=== PATIENT | male | born 1970 | race Native Hawaiian/Other Pacific Islander ===

== ENCOUNTER 2022-01-12 16:32 | Inpatient (IN) | payer MEDICAID ==
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
[2022-01-13] MEDS: BENZTROPINE 1 MG TAB PO SCH ×2 (14:41→21:45)
[2022-01-13] MEDS: ARIPiprazole 5 MG TAB PO SCH (14:45)
[2022-01-13] MEDS: cloNIDine 0.1 MG TAB PO SCH (21:45)
[2022-01-13] MEDS: rOPINIRole 1 MG TAB PO SCH (21:45)
[2022-01-13] MEDS: cloNIDine 0.2 MG TAB PO SCH (21:46)
[2022-01-13] MEDS ORDERED: ROPINIROLE HCL 4 MG PO SCH (22:00)
--- NOTE | 2022-01-14 06:49 | Progress Note ---
Assessment and Plan Assessment and plan: Patient is a 51 year old male with past medical hx of biolar disorder admitted with homicidal ideation. He reports that he has a hx of Elevated BP Due to not taken care of himself but normally does not need BP meds although he takes them as part of his bipolar treatment. He reports recent Methamphetamine use relapase after being clean for nearly a year. He denies any chest pain, nausea, vomiting, neurosensory or motor deficit. He does have a racing thoughts while speaking otherwise no other complaints. HTN TOBACCO Substance abuse- methamphetamine BIPOLAR Disorder Bradycardic asymptomatic plan Continue to monitor heart rate if symptomatic notify continue supportive care per psych team Continue home medications Nicotine patch if he wants, for now he had said no Counselling on substance abuse discussed for about 15 mins. He verbalized understandign and states on discharge will get back to his detox program DVT/GI prophy Thank you for the consult History Interval history: Patient seen and examined no acute issues reported overnight. Hospitalist Physical - Physical exam Narrative exam: VITAL SIGNS: Reviewed. GENERAL: The patient appears normally developed, Vital signs as documented. HEAD: No signs of head trauma. EYES: Pupils are equal. Extraocular motions intact. EARS: Hearing grossly intact. MOUTH: Oropharynx is normal. NECK: No adenopathy, no JVD. CHEST: Chest with clear breath sounds bilaterally. No wheezes, rales, or rhonchi. CARDIAC: Bradycardic otherwise regular rhythm. S1 and S2, without murmurs, gallops, or rubs. VASCULAR: No Edema. Peripheral pulses normal and equal in all extremities. ABDOMEN: Soft, non tender and non distended. No rebound or guarding, and no masses palpated. Bowel Sounds normal. MUSCULOSKELETAL: Good range of motion of all major joints. Extremities without clubbing, cyanosis or edema. NEUROLOGIC EXAM: Alert and oriented x 3 No focal sensory or strength deficits. Speech normal. Follows commands. PSYCHIATRIC: Mood normal. SKIN: Well-healed surgical scars of the wrist detail exam as documented in skin assessment - Constitutional Vitals: Temp Pulse Resp BP Pulse Ox 98.9 F 54 L 18 132/80 97 01/13/22 20:00 01/13/22 21:46 01/13/22 20:00 01/13/22 21:46 01/13/22 20:00 General appearance: Present: no acute distress, well-nourished. Absent: mild distress, severe distress Results - Labs Labs: Laboratory Last Values POC Glucose 94 mg/dL (70-105) 01/13/22 06:47 Soler/IV: Voiding Method Toilet Active Medications - Current Medications Current Medications: Generic Name Dose Route Start Last Admin Trade Name Freq PRN Reason Stop Dose Admin Aripiprazole 5 mg 01/13/22 14:00 01/13/22 14:45 Aripiprazole 5 Mg Tab PO Not Given QDAY MAGGIE Benztropine Mesylate 1 mg 01/13/22 14:00 01/13/22 21:45 Benztropine 1 Mg Tab PO 1 mg BID MAGGIE Administration Clonidine HCl 0.1 mg 01/13/22 22:00 01/13/22 21:45 Clonidine 0.1 Mg Tab PO 0.1 mg QHS MAGGIE Administration Clonidine HCl 0.2 mg 01/13/22 22:00 01/13/22 21:46 Clonidine 0.2 Mg Tab PO 0.2 mg QHS MAGGIE Administration Ropinirole HCl 4 mg 01/13/22 22:00 01/13/22 21:45 Ropinirole 1 Mg Tab PO 4 mg QHS MAGGIE Administration
[2022-01-14] MEDS: ARIPiprazole 5 MG TAB PO SCH (10:34)
[2022-01-14] MEDS: BENZTROPINE 1 MG TAB PO SCH ×2 (10:36→23:04)
--- NOTE | 2022-01-14 10:38 | Progress Note ---
Subjective Date of service: 01/14/22 Principal diagnosis: Bipolar Disorder Subjective Comment: The patient was seen today. He is lying in bed. He is irritable and says he needs to get to [facility] in [place]. The patient denies SI/HI. He says "I was homicidal but I'm not now." He denies hallucinations. REVIEW OF SYSTEMS Constitutional: Negative for weight loss ENT: Negative for stridor Respiratory: Negative for cough or hemoptysis All other systems reviewed and are negative MENTAL STATUS EXAMINATION General Appearance: Dressed appropriately Behavior: calm and cooperative, irritable Mood: upset Affect and affective range: congruent with mood Thought Process: Goal directed Thought content: None Speech: Normal tone and pace Suicidal Ideation: Denies Homicidal Ideation: Denies Hallucinations: Denies Delusions: None elicited Insight and Judgment: Limited insight and judgment Memory: Limited Attention: Distracted Orientation: Alert, oriented Assessment Bipolar Disorder Treatment Plan Patient admitted for inpatient psychiatric evaluation, medication adjustment and close monitoring The patient's behavior, mood, sleep and appetite will be closely monitored. Patient enrolled in individual and group therapeutic sessions and encouraged to attend. Patient provided with a safe and structured environment. Patient's physical health needs will be addressed by the Hospitalist. Hospitalist Consulted Labs including CBC, CMP, Lipid profile and Hemoglobin A1C levels ordered for baseline reference Social Assessment will be completed and the Underground Mine Machinery Mechanic will work with patient and family to ensure a suitable and safe disposition Medication adjustment will be made as clinically indicated Abilify 5mg po daily yesterday No changes made today Usual Wellness [facility]: - Start Trazodone 50 mg po QHS & 50 mg po QHS PRN between 10 PM & 2 AM for insomnia - Start Melatonin 5 mg po QHS to promote circadian rhythm The patient agreed on the treatment plan, understood the risk, benefit, alternative treatment, potential consequence of no treatment, and gave informed consent. Estimated days: 6 Post hospital care: primary care provider, psychiatric provider Case staffed with Dr. Grace Medications and Allergies Allergies Allergy/AdvReac Type Severity Reaction Status Date / Time No Known Allergies Allergy Verified 01/13/22 04:36 Home Medications Medication Instructions Recorded Confirmed Last Taken Type Benztropine [Cogentin] 1 mg PO BID 01/13/22 01/13/22 Unknown History Ropinirole HCl [Requip] 4 mg PO QHS 01/13/22 01/13/22 Unknown History cloNIDine [Catapres] 0.1 mg PO QHS 01/13/22 01/13/22 Unknown History cloNIDine [Catapres] 0.2 mg PO QHS 01/13/22 01/13/22 Unknown History Active Meds: Active Medications Aripiprazole (Aripiprazole 5 Mg Tab) 5 mg PO QDAY [facility] Last Admin: 01/14/22 10:34 Dose: Not Given Benztropine Mesylate (Benztropine 1 Mg Tab) 1 mg PO BID [facility] Last Admin: 01/14/22 10:36 Dose: Not Given Clonidine HCl (Clonidine 0.1 Mg Tab) 0.1 mg PO QHS [facility] Last Admin: 01/13/22 21:45 Dose: 0.1 mg Clonidine HCl (Clonidine 0.2 Mg Tab) 0.2 mg PO QHS [facility] Last Admin: 01/13/22 21:46 Dose: 0.2 mg Ropinirole HCl (Ropinirole 1 Mg Tab) 4 mg PO QHS [facility] Last Admin: 01/13/22 21:45 Dose: 4 mg Results - Results Labs/Vitals: Laboratory Last Values POC Glucose 94 mg/dL (70-105) 01/13/22 06:47 Last Vital Signs Temp 98.9 F 01/13/22 20:00 Pulse 54 L 01/13/22 21:46 Resp 18 01/13/22 20:00 BP 132/80 01/13/22 21:46 Pulse Ox 97 01/13/22 20:00
[2022-01-14] MEDS: rOPINIRole 1 MG TAB PO SCH (21:37)
[2022-01-14] MEDS: cloNIDine 0.2 MG TAB PO SCH (21:38)
[2022-01-14] MEDS: cloNIDine 0.1 MG TAB PO SCH (21:39)
--- NOTE | 2022-01-15 07:14 | Progress Note ---
Assessment and Plan Assessment and plan: Patient is a 51 year old male with past medical hx of biolar disorder admitted with homicidal ideation. He reports that he has a hx of Elevated BP Due to not taken care of himself but normally does not need BP meds although he takes them as part of his bipolar treatment. He reports recent Methamphetamine use relapase after being clean for nearly a year. He denies any chest pain, nausea, vomiting, neurosensory or motor deficit. He does have a racing thoughts while speaking otherwise no other complaints. HTN TOBACCO Substance abuse- methamphetamine BIPOLAR Disorder Bradycardic asymptomatic plan Continue to supportive care and monitor heart rate if symptomatic notify MD continue supportive care per psych team Continue home medications Nicotine patch if he wants, for now he had said no Counselling on substance abuse discussed for about 15 mins. He verbalized understandign and states on discharge will get back to his detox program DVT/GI prophy Thank you for the consult History Interval history: Patient seen and examined no acute issues reported overnight. Laying in bed. Hospitalist Physical - Physical exam Narrative exam: VITAL SIGNS: Reviewed. GENERAL: The patient appears normally developed, Vital signs as documented. HEAD: No signs of head trauma. EYES: Pupils are equal. Extraocular motions intact. EARS: Hearing grossly intact. MOUTH: Oropharynx is normal. NECK: No adenopathy, no JVD. CHEST: Chest with clear breath sounds bilaterally. No wheezes, rales, or rhonchi. CARDIAC: Bradycardic otherwise regular rhythm. S1 and S2, without murmurs, ga llops, or rubs. VASCULAR: No Edema. Peripheral pulses normal and equal in all extremities. ABDOMEN: Soft, non tender and non distended. No rebound or guarding, and no masses palpated. Bowel Sounds normal. MUSCULOSKELETAL: Good range of motion of all major joints. Extremities without clubbing, cyanosis or edema. NEUROLOGIC EXAM: Alert and oriented x 3 No focal sensory or strength defi cits. Speech normal. Follows commands. PSYCHIATRIC: Mood normal. SKIN: Well-healed surgical scars of the wrist detail exam as documented in skin assessment - Constitutional Vitals: Temp Pulse Resp BP Pulse Ox 98.4 F 20 L 18 122/79 97 01/14/22 22:00 01/14/22 22:00 01/14/22 22:00 01/14/22 22:00 01/14/22 22:00 General appearance: Present: no acute distress, well-nourished. Absent: mild distress, severe distress Results - Labs Labs: Laboratory Last Values POC Glucose 94 mg/dL (70-105) 01/13/22 06:47 Soler/IV: Voiding Method Toilet Active Medications - Current Medications Current Medications: Generic Name Dose Route Start Last Admin Trade Name Freq PRN Reason Stop Dose Admin Aripiprazole 5 mg 01/13/22 14:00 01/14/22 10:34 Aripiprazole 5 Mg Tab PO Not Given QDAY MAGGEI Benztropine Mesylate 1 mg 01/13/22 14:00 01/14/22 23:04 Benztropine 1 Mg Tab PO 1 mg BID MAGGIE Administration Clonidine HCl 0.1 mg 01/13/22 22:00 01/14/22 21:39 Clonidine 0.1 Mg Tab PO 0.1 mg QHS MAGGIE Administration Clonidine HCl 0.2 mg 01/13/22 22:00 01/14/22 21:38 Clonidine 0.2 Mg Tab PO 0.2 mg QHS MAGGIE Administration Ropinirole HCl 4 mg 01/13/22 22:00 01/14/22 21:37 Ropinirole 1 Mg Tab PO 4 mg QHS MAGGIE Administration
[2022-01-15 09:14] VITALS: BP 114/70
[2022-01-15] MEDS: BENZTROPINE 1 MG TAB PO SCH (09:14)
[2022-01-15] MEDS: ARIPiprazole 5 MG TAB PO SCH (09:17)
--- NOTE | 2022-01-15 09:21 | Discharge Summary ---
Providers - Providers Date of Admission: 01/13/22 04:35 Date of discharge: 01/15/22 Attending physician: MARIANO LUNA MD 01/12/22 23:03 Consult to Physician [CONS] Routine Comment: Consulting Provider: ALPHONSO MIRANDA Physician Instructions: Reason For Exam: H&P Primary care physician: MEDIA ASSISTANT Hospitalization Reason for admission: delusional Admitting Diagnosis: F31.9 - BIPOLAR DISORDER, UNSPECIFIED Condition: Stable Hospital course: The patient was provided inpatient psychiatric treatment with safe and supportive environment, group/individual therapy, psychiatric medication, medication adjustment, adverse effect monitor, medical evaluation, medical treatment, social service assessment, social support meeting, placement assessment and psycho-education. The patients mood, cognition, behavior, motivation, compliance to treatment and appreciation on family/social support are improved and stabilized. At the time of discharge, the patient had no suicidal ideas, no homicidal ideas, no aggressive thoughts, no endangering behavior and no debilitating adverse effects. The patient agreed on the treatment plan, understood the risk, benefit, alternative treatment, potential consequence of no treatment, and gave informed consent. 01/15 The patient was seen today. He is upset that he's still in here, and states he was [facility] had [facility] [place]. The patient says "it has been 72 hours and I'm still here." I informed the patient that it was a process and were working on trying to get him where he needs to be for continuity of his mental wellness. The patient becomes angry and starts yelling. He says "I told you I am not suicidal or homicidal. I'm not hallucinating." The patient then yells, "please discharge me. No one is doing their job." The patient will discharge home with scripts and outpatient resources provided by the . Disposition: 01 HOME / SELF CARE / HOMELESS Time spent for discharge: 35 Allergies/Adverse Reactions: Allergies No Known Allergies Allergy (Verified 01/13/22 04:36) Vital Signs: Last Vital Signs Temp 98.4 F 01/14/22 22:00 Pulse 20 L 01/14/22 22:00 Resp 18 01/14/22 22:00 BP 122/79 01/14/22 22:00 Pulse Ox 97 01/14/22 22:00 Last Lab: Laboratory Last Values POC Glucose 94 mg/dL (70-105) 01/13/22 06:47 Core Measure Documentation - Palliative Care Palliative Care/ Comfort Measures: Not Applicable - Core Measures Any of the following diagnoses?: none Exam - Constitutional Vitals: Temp Pulse Resp BP Pulse Ox 98.4 F 20 L 18 122/79 97 01/14/22 22:00 01/14/22 22:00 01/14/22 22:00 01/14/22 22:00 01/14/22 22:00 General appearance: Present: no acute distress - EENT Eyes: Present: PERRL, EOM intact ENT: hearing intact, clear oral mucosa - Neck Neck: Present: supple, normal ROM - Respiratory Respiratory effort: normal Plan Activity: advance as tolerated Weight Bearing Status: Weight Bear as Tolerated Care Plan Goals: Maintain good and stable mental health Plan of Treatment: The patient should be compliant with medications, not to use drugs and not to drink alcohol.The patient understands that if suicidal ideas, homicidal ideas, or any endangering thoughts/behavior arise, they should immediately seek for emergent assistance including but not limited to crisis hot line and emergency room. Follow up with outpatient Psychiatrist and PCP within 7 - 14 days of discharge. Assessment: Bipolar Disorder Follow up with: PRIMARY CAREMD [Primary Care Provider] - 7 Days Prescriptions: ARIPiprazole 5 mg PO QDAY #30 tablet
== END 2022-01-15 12:40 | disposition home or self-care (01) | DRG 885 ==
LOC: UNDOADMIN 16:32 → 3A 16:32 → 5A 01-13 04:35
PROVIDERS: ADMIT Psychiatry & Neurology Psychiatry; ATTEND Psychiatry & Neurology Psychiatry
DX: F31.9 Bipolar disorder, unspecified (principal); I10 Essential (primary) hypertension; F15.10 Other stimulant abuse, uncomplicated; R45.850 Homicidal ideations
CPT/HCPCS: 82962; G0378